=== PATIENT | female | born 1965 | race Caucasian/White ===

== ENCOUNTER 2018-03-10 17:22 | Inpatient (IN) | payer BC ==
[2018-03-10] MEDS ORDERED: Ibuprofen TAB* 600 MG PO ONE (17:26)
--- NOTE | 2018-03-10 17:55 | ED ---
Lower Extremity - HPI Summary HPI Summary: Pt is a 52 y/o female brought in by EMS who presents to the ED c/o ankle pain s/ p fall. She was walking down stairs when she twisted both of her ankles outward , and fell down the stairs. Pt was not able to get off the ground. She notes swelling, pain, and deformity of both ankles, but states the left ankle is worse. Pt denies any head or arm injury. She is not a smoker and is not on blood thinners. - History of Current Complaint Stated Complaint: FALL/LT AND RT ANKLE INJURY Time Seen by Provider: 03/10/18 17:25 Hx Obtained From: Patient, EMS Mechanism Of Injury: Fall From Height Of: - While on stairs, Twisted Onset of Pain: Immediate Severity Currently: Moderate Pain Intensity: 6 Pain Scale Used: 0-10 Numeric Timing: Constant Location: Is Discrete @ - Bilateral ankles Associated Signs And Symptoms: Positive: Swelling, Other - ankle pain Aggravating Factor(s): Movement Able to Bear Weight: No - Allergies/Home Medications Allergies/Adverse Reactions: Allergies Allergy/AdvReac Type Severity Reaction Status Date / Time latex Allergy Unknown Verified 03/10/18 17:33 Reaction Details Penicillins Allergy Unknown Verified 03/10/18 17:33 Reaction Details PMH/Surg Hx/FS Hx/Imm Hx Endocrine/Hematology History: Reports: Hx Thyroid Disease Denies: Hx Diabetes Cardiovascular History: Denies: Hx Hypertension - Surgical History Surgery Procedure, Year, and Place: Right hip replacement Infectious Disease History: No Infectious Disease History: Denies: Traveled Outside the [place] in Last 30 Days - Family History Known Family History: Negative: Blood Disorder - Social History Alcohol Use: Occasionally Hx Substance Use: No Substance Use Type: Reports: None Hx Tobacco Use: No Smoking Status (MU): Never Smoked Tobacco Review of Systems Negative: Fever Positive: Arthralgia - Bilateral ankle pain All Other Systems Reviewed And Are Negative: Yes Physical Exam - Summary Physical Exam Summary: Appearance: Well appearing, no pain distress Skin: warm, dry, reflects adequate perfusion Head/face: normal Eyes: EOMI, TONY ENT: mucous membranes moist Neck: supple, non-tender Respiratory: CTA, breath sounds present Cardiovascular: RRR, pulses symmetrical Abdomen: non-tender, soft Bowel Sounds: present Musculoskeletal: tenderness and swelling of bilateral distal fibula, bilateral lateral malleolar tenderness and swelling, no pain to the fifth metatarsals, naviculars, or medial malleoli Neuro: normal, sensory motor intact, A&Ox3 Triage Information Reviewed: Yes Vital Signs On Initial Exam: Initial Vitals Temp Pulse Resp BP Pulse Ox 98.6 F 73 16 135/89 95 03/10/18 17:30 03/10/18 17:30 03/10/18 17:30 03/10/18 17:30 03/10/18 17:30 Vital Signs Reviewed: Yes Procedures - Splinting Left Lower Extremity Location: LLE Hand-Made Type: orthoglass Splint: sugar-tong Pre-Proc Neuro Vasc Exam: normal Post-Proc Neuro Vasc Exam: normal Right Lower Extremity Location: RLE Pre-Made Type: aircast Pre-Proc Neuro Vasc Exam: normal Post-Proc Neuro Vasc Exam: normal Diagnostics - Vital Signs Vital Signs Temp Pulse Resp BP Pulse Ox 03/10/18 17:30 98.6 F 73 16 135/89 95 - Laboratory Lab Statement: Any lab studies that have been ordered have been reviewed, and results considered in the medical decision making process. - Radiology Ankle XR Xray Interpretation: Positive (See Comments) - OBLIQUE NONDISPLACED FRACTURE OF THE DISTAL LEFT FIBULA WITH QUESTIONABLE NONDISPLACED FRACTURE OF THE DISTAL RIGHT FIBULA. ED physicial reviewed radiology report. Radiology Interpretation Completed By: Radiologist Re-Evaluation - Re-Evaluation First Eval Re-Evaluation Time: 19:45 Change: Unchanged Comment: Spoke to social sciences lecturer, pt has to be admitted since she cannot walk. Lower Extremity Course/Dx - Course Course Of Treatment: Patient with a Hanna B fracture of her right distal fibula that was splinted in a sugar tong. There is a nondisplaced Hanna refracture on the right side. This is placed in an Sly wrap and air splint. The patient however was unable to bear weight and is from out of town. She has no place to stay or anyone to take care of her. Social work was contacted and they wished to have the patient admitted overnight. She'll see orthopedics in the morning. - Diagnoses Provider Diagnoses: Fracture of distal end of right fibula, Fracture of distal end of left fibula - Physician Notifications Discussed Care Of Patient With: Latrell Burgess Time Discussed With Above Provider: 19:55 Instructed by Provider To: Admit As Inpatient - MADDY Lindsay accepts pt for admission. Discharge - Sign-Out/Discharge Documenting (check all that apply): Patient Departure - Admit - Discharge Plan Condition: Stable Disposition: ADMITTED TO [facility] Prescriptions: Hydrocodone/Acetaminophen [[place] 5-325 Tablet] 1 each PO Q6H PRN #12 tablet MDD 4 PRN Reason: Severe Pain Naproxen [Naproxen 500 mg tab] 500 mg PO BID PRN #12 tablet.dr MANCILLA Reason: Pain Patient Education Materials: Ankle Fracture (ED) Referrals: Jonathan Coe MD [Medical Doctor] - No Primary Care Phys,NOPCP [Primary Care Provider] - Additional Instructions: Follow up with your doctor on arrival back to [place]. See an orthopedist as soon as possible. Weightbearing as tolerated on the right ankle. Crutch walking. Ice or legs. Return if worse, new symptoms or other concerns. - Billing Disposition and Condition Condition: STABLE Disposition: Admitted to [facility] - Attestation Statements Document Initiated by Scribe: Yes Documenting Scribe: Janeth Garcia Provider For Whom Scribe is Documenting (Include Credential): Brian Garrido MD Scribe Attestation: Janeth Lieberman, scribed for Brian Garrido MD on 03/10/18 at 2112. Scribe Documentation Reviewed: Yes Provider Attestation: The documentation as recorded by the scribeJaneth accurately reflects the service I personally performed and the decisions made by me, Brian Garrido MD
--- NOTE | 2018-03-10 18:04 | RAD ---
HISTORY: injury COMPARISONS: None VIEWS: 5 , frontal views of both ankles with oblique views and lateral views of the left ankle and of the right ankle FINDINGS: Right: BONE DENSITY: Normal. BONES: There is a questionable oblique nondisplaced fracture of the distal fibula JOINTS: There is no arthropathy. ALIGNMENT: There is no dislocation. The alignment is anatomic. SOFT TISSUES: Unremarkable. Left: BONE DENSITY: Normal. BONES: There is an oblique nondisplaced fracture of the distal fibula. JOINTS: There is no arthropathy. ALIGNMENT: There is no dislocation. The alignment is anatomic. SOFT TISSUES: Unremarkable. OTHER FINDINGS: None. IMPRESSION: OBLIQUE NONDISPLACED FRACTURE OF THE DISTAL LEFT FIBULA WITH QUESTIONABLE NONDISPLACED FRACTURE OF THE DISTAL RIGHT FIBULA.
[2018-03-10] MEDS: oxyCODONE/Acetamin 5/325 MG* TAB PO ONE ×2 (19:21→19:23)
[2018-03-10] MEDS ORDERED: Docusate CAP* 100 MG PO PRN (20:37)
[2018-03-10] MEDS ORDERED: traMADol TAB* 50 MG PO PRN (20:41)
[2018-03-10 21:16] LABS: ABS Basophils 0 10^3/ul (0-0.2); ABS Eosinophils 0.1 10^3/ul (0-0.6); ABS Lymphocytes 1.8 10^3/ul (1.0-4.8); ABS Monocytes 0.5 10^3/ul (0-0.8); ABS Neutrophils 5.3 10^3/ul (1.5-7.7); ABS Nucleated RBC 0 10^3/ul; Hematocrit 43 % (35-47); Hemoglobin 14.4 g/dl (12.0-16.0); Lymphocyte % 23.2 % (25-47); Mean Corpuscular HGB Conc 33 g/dl (31-36); Mean Corpuscular Hemoglobin 31 pg (27-31); Mean Corpuscular Volume 92 fL (80-97); Mean Platelet Volume 8.6 um3 (7.4-10.4); Nucleated Red Blood Cells % 0; Platelet Count 259 10^3/ul (150-450); Red Cell Distribution Width 13 % (10.5-15); White Blood Count 7.6 10^3/ul (3.5-10.8)
[2018-03-10 21:32] LABS: EGFR Non-African American 80.8 (>60)
[2018-03-10 21:38] LABS: INR 0.92 (0.77-1.02)
[2018-03-11] MEDS: Ketorolac INJ* 30 MG/ML 1 ML VIAL IV PUSH PRN ×2 (01:55→20:01)
[2018-03-11] MEDS: Enoxaparin(*) 40 MG/0.4 ML SYR SUBCUT SCH ×2 (01:57→20:02)
--- NOTE | 2018-03-11 03:44 | HP ---
ADMISSION HISTORY AND PHYSICAL: DATE OF ADMISSION: 03/10/18 CHIEF COMPLAINT: Bilateral ankle pain status post fall sustaining nondisplaced fracture of the left fibula with question of nondisplaced fracture of the right. HISTORY OF PRESENT ILLNESS/HOSPITAL COURSE: The patient is a 52-year-old lady with history of hyperthyroidism, currently not on methimazole, being worked up at [facility], who mentions that she was going down a flight of stairs and about 2 or 3 steps left tripped where her foot anchored on one of the stairs and she broke her fall with her hands. She denied any other pain except for the foot and is able to move her arms as well as her wrists. PAST MEDICAL AND SURGICAL HISTORY: Right hip replacement; right shoulder rotator cuff repair; hyperthyroidism, previously on methimazole being evaluated at [facility]. ALLERGIES: PENICILLIN, which causes rash and allergies to LATEX. FAMILY HISTORY: Her grandmother has history of coronary artery disease. Her mother had diabetes. SOCIAL HISTORY: She denied any smoking history except when she was a teenager, which she did for social reason. Denied any history of alcohol and IV drug use. 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 REVIEW OF SYSTEMS: The patient complains of bilateral ankle pain 11/26. Denies any other pain anywhere else, able to move all extremities including her right shoulder which she mentions that she had some rotator cuff repair a few months back. Denied any pain in her hands and her wrists. She denied any recent headache, dizziness, fevers, chills, nausea, vomiting, chest pain, shortness of breath, increased cough or sputum production, abdominal pain, diarrhea, constipation, pain and/or increased frequency in urination, throat pain, or new skin lesions. The rest of the 14-point review of systems is otherwise unremarkable. PHYSICAL EXAMINATION GENERAL APPEARANCE: The patient is awake, alert, and oriented x3, not in acute distress. VITAL SIGNS: Most recent vital signs of record with blood pressure of 135/86, 70 beats per minute heart rate, 16 per minute respiratory rate, saturating at 95 % room air. HEENT: Normocephalic, atraumatic. PERRLA. Extraocular muscles intact. Negative for icterus. Moist oral mucosa, negative throat erythema. NECK: Soft, supple with no cervical lymphadenopathy. No JVD. CHEST: Clear to auscultation bilaterally. Good air entry. No wheezes, rales, or rhonchi. HEART: S1, S2 within normal limits. Regular rate and rhythm. No murmurs, rubs , or gallops ABDOMEN: Soft, nondistended, nontender, normoactive bowel sounds x4 quadrants. EXTREMITIES: No cyanosis, clubbing, or edema. PSYCHIATRIC: No active psychosis, depression, suicidal or homicidal ideation. SKIN: Warm to touch. DIAGNOSTIC STUDIES/LAB DATA: Most recent and impertinent laboratory data is the x- ray of her bilateral ankles showing oblique nondisplaced fracture of the distal left fibula with questionable nondisplaced fracture of the distal right fibula. No blood work done, but we will order CBC, CMP, as well as PT/INR pending on decision of Orthopedics in a.m. ASSESSMENT AND PLAN: The patient is a 52-year-old lady with history of hyperthyroidism, not on methimazole, being worked up at [facility], admitted for this nondisplaced fracture of the distal left fibula with a question of nondisplaced fracture in the distal right. 1. Left fibular fracture with questionable nondisplaced fracture of the distal right fibula. The patient mentions that she does not want to be placed on any hard opiates and hence we will place the patient on Tylenol and p.r.n. Ketorolac and tramadol and we will continue watchful waiting. We will await any further input from Orthopedics and we will ask for PT and OT to evaluate in a.m. 2. DVT prophylaxis. We will place the patient on Lovenox given the patient is unable to ambulate due to pain. 3. Disposition as above. [id number]/[facility] #: [id number] [facility] CENTERHeriberto
[2018-03-11] MEDS: Omeprazole CAP* 20 MG PO SCH (07:36)
--- NOTE | 2018-03-11 11:32 | PN ---
Subjective Date of Service: 03/11/18 Interval History: Patient seen this morning. She is doing well. complains of some pain. Eager to have her plan finalized. I explained we are awaiting the recommendation from orthopedic. If patient is non surgical than will possibly discharge her today. Will follow up with ortho plan Past Medical History: Unchanged from Admission Objective Active Medications: Acetaminophen (Tylenol Tab*) 650 mg PO Q4H PRN PRN Reason: FEVER/PAIN Docusate Sodium (Colace Cap*) 100 mg PO DAILY PRN PRN Reason: CONSTIPATION Enoxaparin Sodium (Lovenox(*)) 40 mg SUBCUT Q24H [facility] Last Admin: 03/11/18 01:57 Dose: 40 mg Ketorolac Tromethamine (Toradol Inj*) 30 mg IV PUSH Q6H PRN PRN Reason: PAIN Last Admin: 03/11/18 01:55 Dose: 30 mg Omeprazole (Prilosec Cap*) 20 mg PO DAILY@0730 [facility] Last Admin: 03/11/18 07:36 Dose: 20 mg Tramadol HCl (Ultram*) 100 mg PO Q6H PRN PRN Reason: PAIN Vital Signs - 8 hr 03/11/18 03:39 Temperature 97.9 F Pulse Rate 57 Respiratory 18 Rate Blood Pressure 107/70 (mmHg) O2 Sat by Pulse 96 Oximetry Oxygen Devices in Use Now: None Appearance: awake, no acute distress Eyes: No Scleral Icterus Neck: NL Appearance and Movements; NL JVP Respiratory: Symmetrical Chest Expansion and Respiratory Effort, Clear to Auscultation Cardiovascular: NL Sounds; No Murmurs; No JVD, RRR Extremities: - - in bed. soft cast in place to right left leg. Sly wrap to her left ankle Skin: No Rash or Ulcers Result Diagrams: 03/10/18 21:09 03/10/18 21:09 Assess/Plan/Problems-Billing Assessment: 52 y/o female here for bilateral ankle fracture. oblique non displaced left ankle fracture, and questionable displaced fracture of the right fibula - Patient Problems (1) Ankle fracture Current Visit: Yes Status: Acute Code(s): S82.899A - OTH FRACTURE OF UNSP LOWER LEG, INIT FOR CLOS FX SNOMED Code(s): 11159599 Comment: - follow up ortho input - bed rest, non weight bearing. - Tramdol, tylenol and toradol (2) Hyperthyroidism Current Visit: Yes Status: Acute Code(s): E05.90 - THYROTOXICOSIS, UNSP WITHOUT THYROTOXIC CRISIS OR STORM SNOMED Code(s): 63151506 Comment: - non listed on her home med list. Patient states she is having follow up with her asphalt roller person once she returns home. (3) DVT prophylaxis Current Visit: Yes Status: Acute Code(s): KNM5927 - SNOMED Code(s): 285758358 Comment: lovenox 40 mg sq daily
[2018-03-11] MEDS: Acetaminophen TAB* 325 MG PO PRN (21:41)
--- NOTE | 2018-03-12 06:33 | CONS ---
ORTHOPEDIC CONSULTATION: DATE OF CONSULT: 03/11/18 ATTENDING PHYSICIAN: Dr. Main. ATTENDING ORTHOPEDIC: Dr. Jonathan Coe. (DICTATED BY MADDY SORIA) CHIEF ORTHOPEDIC COMPLAINT: Bilateral ankle pain, left worse than right. HISTORY OF PRESENT ILLNESS: The patient is a 52-year-old female who was visiting her son at [facility] when she missed step walking down a flight of stairs and fell twisting both of her ankles. The patient states difficult ambulating due to pain and swelling in bilateral lower extremities. X -rays were obtained and reveal a fracture of the left distal fibula. No obvious fractures are identified in the right ankle. She was placed into a sugar tong well-formed splint on the left and was given an Aircast for her right lower extremity. She states she is having difficulty ambulating due to right ankle pain as well. She denies other bodily injury upon her fall. She recently underwent right rotator cuff repair in [place]. Surgery was done about 2 months ago and she continues to rehab from that. PAST MEDICAL HISTORY: Significant for right total hip arthroplasty as above, right shoulder rotator cuff repair, hyperthyroidism. ALLERGIES: To PENICILLIN, which causes a rash, as well as allergy to LATEX. FAMILY HISTORY: Coronary artery disease in her grandmother. Mother with a history of diabetes. SOCIAL HISTORY: Denies use of alcohol, tobacco, or illicit drug use. 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 REVIEW OF SYSTEMS: The patient denies recent loss of consciousness, lightheadedness, dizziness. Denies shortness of breath, chest pain, palpitations. Denies gastrointestinal, genitourinary problems. PHYSICAL EXAMINATION: The patient is seen lying supine in bed. She is alert and oriented x3. She is in no acute distress. Orthopedic examination reveals a sugar tong splinted left lower extremity with Sly wrap. There is no ecchymosis noted distally or proximal to the splint. Her calf is nontender and soft. She is moving her toes well and has full sensation with excellent capillary refill. On the right, she had an Aircast splint, which was taken down , Sly wrap removed. There is moderate swelling laterally. There is mild ecchymosis laterally around the ankle. There is no foot ecchymosis or swelling. There is no tenderness to the metatarsals. There is no tenderness over the medial malleolus. Mild deltoid ligament tenderness. There is acute tenderness over the anterior talofibular ligament, none over the posterior talofibular ligament or calcaneal fibular ligaments. She has full dorsiflexion and plantarflexion with mild endpoint pain. Her circulation and sensation are intact with excellent capillary refill. Her calf is soft and nontender on the right. DIAGNOSTIC STUDIES: X-ray examination of the right ankle fails to show any obvious fracture. Her ankle mortise in acceptable position. X-ray of the left ankle reveals nondisplaced comminution oblique fractures in the distal fibular. The ankle mortise is in satisfactory position. IMPRESSION: 1. Right lateral ankle sprain. 2. Left distal fibular fracture nondisplaced. PLAN: The patient is eager to get back to [facility] where she will follow up with an orthopedic provider there. I recommend weightbearing as tolerated on the right lower extremity with the Aircast splint. Nonweightbearing on the left lower extremity until seen Orthopedics in [facility]. No surgical intervention appears necessary at this time for the left ankle. I recommend physical therapy to work with her for ambulation and transfers. MADDY SORIA [id number]/[facility] #: [id number] MTDD
[2018-03-12] MEDS: Omeprazole CAP* 20 MG PO SCH (10:40)
--- NOTE | 2018-03-12 11:00 | PN ---
Subjective Date of Service: 03/12/18 Interval History: Patient seen out of bed in chair. she did work with physical therapy yesterday as per ortho recommendation for weight bearing (only on the right) non weight bearing on the left. Past Medical History: Unchanged from Admission Objective Active Medications: Acetaminophen (Tylenol Tab*) 650 mg PO Q4H PRN PRN Reason: FEVER/PAIN Last Admin: 03/11/18 21:41 Dose: 650 mg Docusate Sodium (Colace Cap*) 100 mg PO DAILY PRN PRN Reason: CONSTIPATION Enoxaparin Sodium (Lovenox(*)) 40 mg SUBCUT Q24H [facility] Last Admin: 03/11/18 20:02 Dose: 40 mg Ketorolac Tromethamine (Toradol Inj*) 30 mg IV PUSH Q6H PRN PRN Reason: PAIN Last Admin: 03/11/18 20:01 Dose: 30 mg Omeprazole (Prilosec Cap*) 20 mg PO DAILY@0730 [facility] Last Admin: 03/12/18 10:40 Dose: 20 mg Tramadol HCl (Ultram*) 100 mg PO Q6H PRN PRN Reason: PAIN Vital Signs - 8 hr 03/12/18 03:55 Temperature 97.5 F Pulse Rate 59 Respiratory 16 Rate Blood Pressure 133/64 (mmHg) O2 Sat by Pulse 98 Oximetry Oxygen Devices in Use Now: None Appearance: no acute distress, awake, alert no acute distress Eyes: No Scleral Icterus, PERRLA Ears/Nose/Mouth/Throat: NL Teeth, Lips, Gums, Clear Oropharnyx Neck: NL Appearance and Movements; NL JVP, Trachea Midline Respiratory: Symmetrical Chest Expansion and Respiratory Effort, Clear to Auscultation Cardiovascular: NL Sounds; No Murmurs; No JVD, RRR Abdominal: NL Sounds; No Tenderness; No Distention Extremities: - - soft air cast on her right ankle, and she does have sadia wrap to her left ankle Skin: No Rash or Ulcers Neurological: Alert and Oriented x 3 Result Diagrams: 03/10/18 21:09 03/10/18 21:09 Assess/Plan/Problems-Billing Assessment: 52 y/o female here for bilateral ankle fracture. oblique non displaced left ankle fracture, and no obvious fracture of the right fibula as per orthopedic assessment of the xrays - Patient Problems (1) Ankle fracture Current Visit: Yes Status: Acute Code(s): S82.899A - OTH FRACTURE OF UNSP LOWER LEG, INIT FOR CLOS FX SNOMED Code(s): 28227317 Comment: - ortho cleared patient for weight bearing only to the right ankle. - PT/OT as tolerated. - Tramdol, tylenol and toradol - need ortho follow up within one week pending disposition. (2) Hyperthyroidism Current Visit: Yes Status: Acute Code(s): E05.90 - THYROTOXICOSIS, UNSP WITHOUT THYROTOXIC CRISIS OR STORM SNOMED Code(s): 71477764 Comment: - non listed on her home med list. Patient states she is having follow up with her nanny caregiver once she returns home. - Declined treatment at this time until she sees her nanny caregiver (3) DVT prophylaxis Current Visit: Yes Status: Acute Code(s): FPG9744 - SNOMED Code(s): 709134503 Comment: lovenox 40 mg sq daily Status and Disposition: for STR [facility] or [facility] home [facility] as patient prefer [facility] rehab if possible
[2018-03-12] MEDS: Ketorolac INJ* 30 MG/ML 1 ML VIAL IV PUSH PRN (20:48)
[2018-03-12] MEDS: Enoxaparin(*) 40 MG/0.4 ML SYR SUBCUT SCH (20:48)
[2018-03-13] MEDS: Omeprazole CAP* 20 MG PO SCH (08:36)
--- NOTE | 2018-03-13 11:27 | PN ---
Subjective Date of Service: 03/13/18 Interval History: Patient seen today, was getting PT. No events overnight. She still have pain in both legs. NO events overnight. awaiting acceptance to short term rehab Past Medical History: Unchanged from Admission Objective Active Medications: Acetaminophen (Tylenol Tab*) 650 mg PO Q4H PRN PRN Reason: FEVER/PAIN Last Admin: 03/11/18 21:41 Dose: 650 mg Docusate Sodium (Colace Cap*) 100 mg PO DAILY PRN PRN Reason: CONSTIPATION Enoxaparin Sodium (Lovenox(*)) 40 mg SUBCUT Q24H [facility] Last Admin: 03/12/18 20:48 Dose: 40 mg Ketorolac Tromethamine (Toradol Inj*) 30 mg IV PUSH Q6H PRN PRN Reason: PAIN Last Admin: 03/12/18 20:48 Dose: 30 mg Omeprazole (Prilosec Cap*) 20 mg PO DAILY@0730 [facility] Last Admin: 03/13/18 08:36 Dose: 20 mg Tramadol HCl (Ultram*) 100 mg PO Q6H PRN PRN Reason: PAIN Vital Signs - 8 hr 03/13/18 03:49 Temperature 97.5 F Pulse Rate 58 Respiratory 18 Rate Blood Pressure 108/58 (mmHg) O2 Sat by Pulse 100 Oximetry Oxygen Devices in Use Now: None Appearance: appearance, awake. in no acute distress Eyes: No Scleral Icterus, PERRLA Ears/Nose/Mouth/Throat: NL Teeth, Lips, Gums, Clear Oropharnyx Neck: NL Appearance and Movements; NL JVP Respiratory: Symmetrical Chest Expansion and Respiratory Effort, Clear to Auscultation Cardiovascular: NL Sounds; No Murmurs; No JVD, RRR Abdominal: NL Sounds; No Tenderness; No Distention Neurological: Alert and Oriented x 3 Result Diagrams: 03/10/18 21:09 03/10/18 21:09 Assess/Plan/Problems-Billing Assessment: 52 y/o female here for bilateral ankle fracture. Oblique non displaced left ankle fracture, and no obvious fracture of the right fibula as per orthopedic assessment of the xrays - Patient Problems (1) Ankle fracture Current Visit: Yes Status: Acute Code(s): S82.899A - OTH FRACTURE OF UNSP LOWER LEG, INIT FOR CLOS FX SNOMED Code(s): 05215851 Comment: - ortho cleared patient for weight bearing only to the right ankle. - PT/OT as tolerated. - Tramdol, tylenol and toradol - need ortho follow up within one week pending disposition. (2) Hyperthyroidism Current Visit: Yes Status: Acute Code(s): E05.90 - THYROTOXICOSIS, UNSP WITHOUT THYROTOXIC CRISIS OR STORM SNOMED Code(s): 81783735 Comment: - non listed on her home med list. Patient states she is having follow up with her rail layer once she returns home. - Declined treatment at this time until she sees her rail layer - TSH/FT4 from admission normal - Further work up as outpatient. (she sees endocrinology at [facility]) (3) DVT prophylaxis Current Visit: Yes Status: Acute Code(s): FLZ8388 - SNOMED Code(s): 276695174 Comment: lovenox 40 mg sq daily Status and Disposition: for STR either here [facility] or back home [facility] as patient prefer [facility] rehab if possible
--- NOTE | 2018-03-13 18:00 | RAD ---
INDICATION: Chest pain. COMPARISON: There are no relevant prior studies available for comparison. TECHNIQUE: A portable view of the chest was obtained. FINDINGS: Cardiac and mediastinal contours appear to be within normal limits. The lungs are clear. No pleural effusion is seen. IMPRESSION: NO EVIDENCE FOR ACUTE DISEASE.
[2018-03-13] MEDS: Enoxaparin(*) 40 MG/0.4 ML SYR SUBCUT SCH (21:02)
[2018-03-14] MEDS: Omeprazole CAP* 20 MG PO SCH (08:30)
--- NOTE | 2018-03-14 11:37 | PN ---
Subjective Date of Service: 03/14/18 Interval History: Patient seen today, still upset regarding the difficulty we have been facing getting her insurance approval for STR. We finally heard today that will be approved for STR here at [facility]. Patient is appreciative of working toward her authorization, but she did prefer rehab to [facility]! unfortunately we did not get any approval for [facility] but myself and the casework supervisor did inform her that she can request from [facility] if they can assist her getting rehab place in [place]. Last night she did have chest pain which was negative Trop, Negative CXR and Negative EKG. No chest pain she is complaining of dyspepsia today and dizziness. Her vitals stable and her pulse normal . Also I was in the room with her for about 30 minutes without any obvious distress. Past Medical History: Unchanged from Admission Objective Active Medications: Acetaminophen (Tylenol Tab*) 650 mg PO Q4H PRN PRN Reason: FEVER/PAIN Last Admin: 03/11/18 21:41 Dose: 650 mg Docusate Sodium (Colace Cap*) 100 mg PO DAILY PRN PRN Reason: CONSTIPATION Enoxaparin Sodium (Lovenox(*)) 40 mg SUBCUT Q24H [facility] Last Admin: 03/13/18 21:02 Dose: 40 mg Ketorolac Tromethamine (Toradol Inj*) 30 mg IV PUSH Q6H PRN PRN Reason: PAIN Last Admin: 03/12/18 20:48 Dose: 30 mg Omeprazole (Prilosec Cap*) 20 mg PO DAILY@0730 [facility] Last Admin: 03/14/18 08:30 Dose: 20 mg Tramadol HCl (Ultram*) 100 mg PO Q6H PRN PRN Reason: PAIN Last Admin: 03/13/18 23:30 Dose: 100 mg T 97.4; Pulse 56; RR 16; Sat 96%; BP 106/54 Oxygen Devices in Use Now: None Appearance: No acute distress. anxious. not diaphoretic. no altered mental status Eyes: No Scleral Icterus, PERRLA Ears/Nose/Mouth/Throat: NL Teeth, Lips, Gums, Clear Oropharnyx Neck: NL Appearance and Movements; NL JVP, Trachea Midline Respiratory: Symmetrical Chest Expansion and Respiratory Effort, Clear to Auscultation Cardiovascular: NL Sounds; No Murmurs; No JVD, RRR, No Edema Abdominal: NL Sounds; No Tenderness; No Distention Extremities: No Edema Skin: No Rash or Ulcers Neurological: Alert and Oriented x 3 Result Diagrams: 03/10/18 21:09 03/10/18 21:09 Assess/Plan/Problems-Billing Assessment: 52 y/o female here for bilateral ankle fracture. Oblique non displaced left ankle fracture, and no obvious fracture of the right fibula as per orthopedic assessment of the xrays - Patient Problems (1) Ankle fracture Current Visit: Yes Status: Acute Code(s): S82.899A - OTH FRACTURE OF UNSP LOWER LEG, INIT FOR CLOS FX SNOMED Code(s): 89054756 Comment: - ortho cleared patient for weight bearing only to the right ankle. - PT/OT as tolerated. - Tramdol, tylenol and toradol - need ortho follow up within one 7-10 from admission date (2) Hyperthyroidism Current Visit: Yes Status: Acute Code(s): E05.90 - THYROTOXICOSIS, UNSP WITHOUT THYROTOXIC CRISIS OR STORM SNOMED Code(s): 69298991 Comment: - non listed on her home med list. Patient states she is having follow up with her statement distribution clerk once she returns home. - Declined treatment at this time until she sees her statement distribution clerk - TSH/FT4 from admission normal - Further work up as outpatient. (she sees endocrinology at [facility]) (3) Chest pain Current Visit: Yes Status: Resolved Code(s): R07.9 - CHEST PAIN, UNSPECIFIED SNOMED Code(s): 15946352 Comment: - Vitals stable, she was assymptomatic driven by frustration and distress regarding her insurance and prior authorizations, I think anxiety driven, psychosomatic - reassurance no acute interventions. EKG, CXR Trop negative (4) Dizziness Current Visit: Yes Status: Resolved Code(s): R42 - DIZZINESS AND GIDDINESS SNOMED Code(s): 965598226 Comment: - Vitals stable, she was assymptomatic driven by frustration and distress regarding her insurance and prior authorizations, I think anxiety driven, psychosomatic - reassurance no acute interventions. EKG, CXR Trop negative (5) DVT prophylaxis Current Visit: Yes Status: Acute Code(s): KWF0802 - SNOMED Code(s): 142977779 Comment: lovenox 40 mg sq daily Status and Disposition: for STR either here in [facility] or back home [facility] as patient prefer [facility] rehab if possible
--- NOTE | 2018-03-14 13:22 | DS ---
CC: Primary Care Provider; Dr. Jonathan Coe, Orthopedic. DISCHARGE SUMMARY: DATE OF ADMISSION: 03/10/18 DATE OF DISCHARGE: 03/14/18 FINAL DISCHARGE DIAGNOSES: 1. Left nondisplaced distal fibular fracture. 2. Right lateral ankle sprain. 3. Hyperthyroidism. SUBJECTIVE: This is a 52-year-old female was visiting her son at [place] and she had an accidental m isstep walking down a flight of stairs, twisted both of her ankles and developed sudden pain and swel ling in bilateral lower leg. The x-ray revealed distal fibular fracture on the left and initially qu estionable nondisplaced fracture of the right. Orthopedics saw, evaluated the patient. They did con firm the fracture on the left and only sprain on the right. They cleared her for weightbearing on e right only, PT/OT, and given her prior history of rotator cuff on the right, she is deemed appropri ate for short-term rehab. Patient remained in the hospital while getting prior authorization for her rehab as she is from [place], unfortunately was not able to secure prior auth to [place], no bed a vailability. She was given a bed at [facility] finally today, 03/14/18. Information was shared wit h the patient. She was slightly disappointed, but finally agreed for the transfer and developed some chest pain after realizing the insurance was denied as of yesterday and last night developed chest p ain. Chest x- ray, EKG, troponin were reported done were negative. This morning, she was complainin g of some dizziness. Her vitals were fairly stable, nondiaphoretic. I was in the room with her for 3 0 minutes. She was conversing and completely asymptomatic. Finally, we got the approval for [facility]. She was slightly more relieved that she is not going to be responsible any longer for being i n the hospital or waiting for the rehab and we are in the midst of arranging transfer to [facility] . She was appreciated for the effort and she understood and she wished to further proceed with [facility] that she needs to consult with the life care planner at [facility]. T herefore, patient seen, evaluated and deemed stable for discharge. DISCHARGE MEDICATIONS: Patient would be released on: 1. Naproxen 500 mg p.r.n. take with food. 2. Tylenol 650 q.4 hours p.r.n. 3. Colace 100 mg daily. 4. Omeprazole 20 mg. 5. I discontinue her narcotics, tramadol and hydrocodone for now, unless if deemed necessary, it can be renewed by the facility provider. DISCHARGE INSTRUCTIONS: 1. Follow up with Orthopedics in 7 to 10 days from admission, which would be 4 to 7 days from today with Dr. Coe here, unless she is in [place], she has to set up an appointment with orthopedic fo r followup. 2. She is nonweightbearing to the left, weightbearing as tolerated to the right ankle. 3. PT/OT evaluated and treated. 4. Adhere to medication and with a regular diet. PHYSICAL EXAM AND ASSESSMENT: Please refer to my progress notes from earlier than today. [id number]/[facility] #: [id number]
[2018-03-14 16:08] LABS: ABS Basophils 0 10^3/ul (0-0.2); ABS Eosinophils 0.1 10^3/ul (0-0.6); ABS Monocytes 0.4 10^3/ul (0-0.8); ABS Nucleated RBC 0 10^3/ul; Eosinophil % 0.8 % (0-6); Hematocrit 41 % (35-47); Hemoglobin 13.7 g/dl (12.0-16.0); Lymphocyte % 13.6 % (25-47); Mean Corpuscular HGB Conc 34 g/dl (31-36); Mean Corpuscular Hemoglobin 30 pg (27-31); Mean Corpuscular Volume 90 fL (80-97); Nucleated Red Blood Cells % 0.1; Platelet Count 210 10^3/ul (150-450); Red Blood Count 4.52 10^6/ul (4.00-5.40); Red Cell Distribution Width 13 % (10.5-15); White Blood Count 7.5 10^3/ul (3.5-10.8)
[2018-03-14 16:23] LABS: EGFR Non-African American 76.1 (>60)
--- NOTE | 2018-03-14 16:59 | PN ---
Hospitalist Progress Note Date of Service: 03/14/18 I was called around 2:20'sh to assess patient developed acute nausea and abdominal pain after her lunch and this was followed by episode of vomiting. Patient was seen in the room. She did not have any abdominal tenderness or guarding, however on further history she gives history of "pancreatitis related to gall bladder issue and stones" for which I presumed she may have had gallstone induced pancreatitis. I did order stat labs for CBC, BMP; Amylase, Lipase, LFT stat and the labs came back slight increase in her bilirubin to 1.5 with indicrect bili of 1.3! I went back and reassessed the patient after the labs and she denies any discomfort but she does not feel like eating from nausea. At this time and with the presentation of post pandrial vomit, associated with previous history of choledocholelithiasis, I will keep patient overnight, check her labs again in am try low fat diet and US of RUQ to rule out CBD stone. pending result and clinical progression will decide if she can be discharged tomorrow of is he warrant further evaluation and possible surgical input.
--- NOTE | 2018-03-14 22:01 | RAD ---
EXAM: US Abdomen Limited, Right Upper Quadrant EXAM DATE/TIME: 03/14/2018 9:29 PM CLINICAL HISTORY: 52 years old, female; Pain; Abdominal pain; Localized; Right upper quadrant (ruq); Additional info: Abdominal pain and vomit TECHNIQUE: Real-time ultrasound of the abdomen with image documentation. Examination was focused on the right upper quadrant. COMPARISON: No relevant prior studies available. FINDINGS: Liver: Liver normal as visualized measuring 19.5 cm in greatest dimension. Gallbladder: Cholelithiasis is present. Gallbladder wall thickness measures 1.8 mm. Technologist reports no patient complaints of pain when imaged over the gallbladder. Common bile duct: Common bile duct measures 2.0 mm. Pancreas: Pancreas normal as visualized. Right kidney: Right kidney measures 10.8 x 4.6 x 3.8 cm. No mass or hydronephrosis. IMPRESSION: Cholelithiasis without other sonographic findings of cholecystitis. To contact [facility] with a general question: [facility] - [phone] For direct physician to physician contact: Physician Hotline - [phone] [facility] ([facility] Facility ID #[id number])
[2018-03-14] MEDS: Naproxen TAB* 375 MG PO SCH (22:10)
[2018-03-14] MEDS: Enoxaparin(*) 40 MG/0.4 ML SYR SUBCUT SCH (22:10)
[2018-03-14] MEDS ORDERED: Ondansetron INJ* 2 MG/ML VIAL IV PRN (22:57)
[2018-03-15] MEDS: Omeprazole CAP* 20 MG PO SCH (07:34)
[2018-03-15 07:50] LABS: ABS Basophils 0 10^3/ul (0-0.2); ABS Eosinophils 0.1 10^3/ul (0-0.6); ABS Lymphocytes 1.8 10^3/ul (1.0-4.8); ABS Monocytes 0.4 10^3/ul (0-0.8); ABS Neutrophils 3.2 10^3/ul (1.5-7.7); ABS Nucleated RBC 0 10^3/ul; Hematocrit 42 % (35-47); Hemoglobin 14.4 g/dl (12.0-16.0); Lymphocyte % 32.3 % (25-47); Mean Corpuscular HGB Conc 34 g/dl (31-36); Mean Corpuscular Hemoglobin 31 pg (27-31); Mean Corpuscular Volume 90 fL (80-97); Mean Platelet Volume 9.2 um3 (7.4-10.4); Nucleated Red Blood Cells % 0; Platelet Count 220 10^3/ul (150-450); Red Blood Count 4.64 10^6/ul (4.00-5.40); Red Cell Distribution Width 13 % (10.5-15); White Blood Count 5.5 10^3/ul (3.5-10.8)
[2018-03-15 07:51] LABS: EGFR Non-African American 77.3 (>60)
[2018-03-15] MEDS: Naproxen TAB* 375 MG PO SCH ×2 (08:50→20:20)
--- NOTE | 2018-03-15 09:20 | PN ---
Subjective Date of Service: 03/15/18 Interval History: Patient seen this morning, her discharge yesterday was held due to nausea and post pandrial epigastric pain, she also did vomit x 1. She was send for US and result revealed Gallstones and labs consistent for elevated bilirubin. No acute pain today. tolerated some of her breakfast today. I did speak to surgery and recommended MRCP and will see patient in consultations Past Medical History: Unchanged from Admission Objective Active Medications: Acetaminophen (Tylenol Tab*) 650 mg PO Q4H PRN PRN Reason: FEVER/PAIN Last Admin: 03/11/18 21:41 Dose: 650 mg Docusate Sodium (Colace Cap*) 100 mg PO DAILY PRN PRN Reason: CONSTIPATION Enoxaparin Sodium (Lovenox(*)) 40 mg SUBCUT Q24H [facility] Last Admin: 03/14/18 22:10 Dose: 40 mg Naproxen (Naprosyn Tab*) 375 mg PO BID [facility] Last Admin: 03/15/18 08:50 Dose: 375 mg Omeprazole (Prilosec Cap*) 20 mg PO DAILY@0730 [facility] Last Admin: 03/15/18 07:34 Dose: Not Given Ondansetron HCl (Zofran Inj*) 4 mg IV Q6H PRN PRN Reason: NAUSEA Vital Signs - 8 hr 03/15/18 03/15/18 03/15/18 02:19 07:44 07:59 Temperature 97.3 F 97.4 F Pulse Rate 64 66 Respiratory 18 16 16 Rate Blood Pressure 110/76 120/70 (mmHg) O2 Sat by Pulse 96 94 Oximetry Oxygen Devices in Use Now: None Appearance: Awake, alert, no acute distress. Eyes: No Scleral Icterus, PERRLA Ears/Nose/Mouth/Throat: NL Teeth, Lips, Gums, Mucous Membranes Moist Neck: NL Appearance and Movements; NL JVP Respiratory: Symmetrical Chest Expansion and Respiratory Effort, Clear to Auscultation Cardiovascular: NL Sounds; No Murmurs; No JVD Abdominal: NL Sounds; No Tenderness; No Distention, - - mild RUQ pain, no rebound. Extremities: No Edema Skin: No Rash or Ulcers Neurological: Alert and Oriented x 3, NL Muscle Strength and Tone Result Diagrams: 03/15/18 07:12 03/15/18 07:12 Assess/Plan/Problems-Billing Assessment: 52 y/o female here for bilateral ankle fracture. Oblique non displaced left ankle fracture, and no obvious fracture of the right fibula as per orthopedic assessment of the xrays - Patient Problems (1) Abdominal pain Current Visit: Yes Status: Acute Code(s): R10.9 - UNSPECIFIED ABDOMINAL PAIN SNOMED Code(s): 18590933 Comment: - None today. It occurred only once post pandrial yesterday followed by vomiting and diaphoresis - I suspect could be related to her biliary colic, due to either biliary dyskinesia or chronic cholecystitis (2) Cholelithiasis Current Visit: Yes Status: Acute Comment: - None acute, I suspect chronic cholecystitis if any versus biliary diskinesia - Surgery was called in light of her rising bilirubin - MRCP ordered as per surgery. May need HIDA scan as well. will wait for the offical report/Surgery consultaitons. - Will hold discharge for today again (3) Ankle fracture Current Visit: Yes Status: Acute Code(s): S82.899A - OTH FRACTURE OF UNSP LOWER LEG, INIT FOR CLOS FX SNOMED Code(s): 75431800 Comment: - ortho cleared patient for weight bearing only to the right ankle. - PT/OT as tolerated. - Tramdol, tylenol and toradol - need ortho follow up within one 7-10 from admission date (4) Hyperthyroidism Current Visit: Yes Status: Acute Code(s): E05.90 - THYROTOXICOSIS, UNSP WITHOUT THYROTOXIC CRISIS OR STORM SNOMED Code(s): 35821557 Comment: - non listed on her home med list. Patient states she is having follow up with her tower hand once she returns home. - Declined treatment at this time until she sees her tower hand - TSH/FT4 from admission normal - Further work up as outpatient. (she sees endocrinology at [facility]) (5) Chest pain Current Visit: Yes Status: Resolved Code(s): R07.9 - CHEST PAIN, UNSPECIFIED SNOMED Code(s): 93546885 Comment: - Resolved - Vitals stable, she was assymptomatic driven by frustration and distress regarding her insurance and prior authorizations, I think anxiety driven, psychosomatic - reassurance no acute interventions. EKG, CXR Trop negative (6) Dizziness Current Visit: Yes Status: Resolved Code(s): R42 - DIZZINESS AND GIDDINESS SNOMED Code(s): 007338855 Comment: - resolved - Vitals stable, she was assymptomatic driven by frustration and distress regarding her insurance and prior authorizations, I think anxiety driven, psychosomatic - reassurance no acute interventions. EKG, CXR Trop negative (7) DVT prophylaxis Current Visit: Yes Status: Acute Code(s): ZCP5968 - SNOMED Code(s): 298392708 Comment: lovenox 40 mg sq daily Status and Disposition: for STR either here in [facility] or back home [facility] as patient prefer [facility] rehab if possible
--- NOTE | 2018-03-15 14:44 | CONS ---
CC: Onofre Ghosh MD CONSULTATION REPORT: DATE OF CONSULTATION: 03/15/18 HISTORY OF PRESENT ILLNESS: I was asked by the hospitalist service to consult for cholelithiasis and elevated liver chemistries. By history, the patient is a 52-year-old female who has had known gallstones and had had tentative pl ans to have her gallbladder out about 6 months ago and then for various reasons, never got around to having the surgery. She has been up here in [place], visiting her son at [place], when she took a fal l and fractured her ankle and was in the hospital for that, and was getting ready to be discharged to rehab, when she started to have nausea, queasiness, bloating, belching feeling and some vomiting and was evaluated and found to have elevated liver chemistries and cholelithiasis and therefore surgical consultation was requested. She has not had any surgery in that region previously. She does state they found a little cyst on the pancreas in the past and were just keeping an eye on that. She also has a history of hypothyroidism, but has not needed medications for that lately. PHYSICAL EXAMINATION: On examination today, she is a well-developed, well- nourished female, consist ent with the stated age. Skin is warm, well perfused. She does not appear acutely ill. Abdomen is s oft, mildly tender in the right subcostal region, trace Montalvo's sign, no guarding, no rebound tender ness. No peritonitis. No hernias. DIAGNOSTIC STUDIES/LAB DATA: Review of the laboratory studies shows elevated liver chemistries with a bilirubin that has gone from 1 up to 1.8, transaminases remained normal and electrolytes were elder l and hemoglobin is normal, white count normal. She has had an ultrasound of the gallbladder, which s hows cholelithiasis, but without acute changes. IMPRESSION: Hyperbilirubinemia in a woman with cholelithiasis, right upper quadrant symptoms, nausea , and vomiting. At this stage, this appears to be biliary colic, at least there is no evidence of acute cholecystitis on the ultrasound, nor does she have an elevated white count, nor does she have the kind of tenderne ss one would expect with acute cholecystitis. 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 So, I think it is reasonable to get an MRCP to evaluate for choledocholithiasis, perhaps we can visualize the pancreatic cyst that she was talking about in the past. In any case, if that scan is benign, th en she would require elective laparoscopic cholecystectomy that could be done during this admission o r at some elective time in the future. If there is the common duct stone, then she would probably ne ed ERCP. [id number]/[facility] #: [id number]
--- NOTE | 2018-03-15 18:45 | PN ---
Hospitalist Progress Note Date of Service: 03/15/18 Delay in entry: It should be noted that the patient discharge on Saturday03/14/18 was held by my order on that day to cancel discharge secondary to the new event of abdominal pain, nausea and vomiting secondary to biliary colicky associated with elevated bilirubin pending work up for obstructive choledocholelithiasis versus cholecystitis.
[2018-03-15] MEDS: Enoxaparin(*) 40 MG/0.4 ML SYR SUBCUT SCH (20:20)
[2018-03-16] MEDS ORDERED: NS 0.9% 500 ML* 500 ML IV ONE (03:00)
[2018-03-16] MEDS: Acetaminophen TAB* 325 MG PO PRN (03:26)
[2018-03-16 06:59] LABS: ABS Basophils 0 10^3/ul (0-0.2); ABS Eosinophils 0.1 10^3/ul (0-0.6); ABS Monocytes 0.4 10^3/ul (0-0.8); ABS Neutrophils 4.7 10^3/ul (1.5-7.7); ABS Nucleated RBC 0 10^3/ul; Eosinophil % 1.6 % (0-6); Hematocrit 40 % (35-47); Hemoglobin 13.7 g/dl (12.0-16.0); Lymphocyte % 27.4 % (25-47); Mean Corpuscular HGB Conc 34 g/dl (31-36); Mean Corpuscular Hemoglobin 31 pg (27-31); Mean Corpuscular Volume 90 fL (80-97); Mean Platelet Volume 8.9 um3 (7.4-10.4); Nucleated Red Blood Cells % 0.1; Platelet Count 217 10^3/ul (150-450); Red Blood Count 4.45 10^6/ul (4.00-5.40); Red Cell Distribution Width 13 % (10.5-15); White Blood Count 7.2 10^3/ul (3.5-10.8)
[2018-03-16 07:16] LABS: EGFR Non-African American 80.8 (>60)
[2018-03-16] MEDS: Omeprazole CAP* 20 MG PO SCH (09:03)
[2018-03-16] MEDS: Naproxen TAB* 375 MG PO SCH (09:03)
--- NOTE | 2018-03-16 10:19 | PN ---
Subjective Date of Service: 03/16/18 Interval History: Patient seen this morning. Doing well. Very upset she did not have her MRCP Yesterday! I did ask nursing staff to call MRI to make sure it is done today. Unfortunately! The MRCP was not performed yesterday due to technical failure, [employer] was called and for now it is tentatively being schedule for 11 am today. She still have nausea, bloated. currently NPO Past Medical History: Unchanged from Admission Objective Active Medications: Acetaminophen (Tylenol Tab*) 650 mg PO Q4H PRN PRN Reason: FEVER/PAIN Last Admin: 03/16/18 03:26 Dose: 650 mg Docusate Sodium (Colace Cap*) 100 mg PO DAILY PRN PRN Reason: CONSTIPATION Enoxaparin Sodium (Lovenox(*)) 40 mg SUBCUT Q24H [facility] Last Admin: 03/15/18 20:20 Dose: 40 mg Naproxen (Naprosyn Tab*) 375 mg PO BID [facility] Last Admin: 03/16/18 09:03 Dose: Not Given Omeprazole (Prilosec Cap*) 20 mg PO DAILY@0730 [facility] Last Admin: 03/16/18 09:03 Dose: Not Given Ondansetron HCl (Zofran Inj*) 4 mg IV Q6H PRN PRN Reason: NAUSEA Vital Signs - 8 hr 03/16/18 03/16/18 03/16/18 03:27 05:14 09:08 Temperature 97.3 F 98.2 F Pulse Rate 64 68 Respiratory 20 20 Rate Blood Pressure 94/56 124/76 117/74 (mmHg) O2 Sat by Pulse 96 93 Oximetry Oxygen Devices in Use Now: None Appearance: awake, alert. no acute distress. Upset and anxious Eyes: No Scleral Icterus, PERRLA Ears/Nose/Mouth/Throat: NL Teeth, Lips, Gums, Clear Oropharnyx, Mucous Membranes Moist Neck: NL Appearance and Movements; NL JVP, Trachea Midline Respiratory: Symmetrical Chest Expansion and Respiratory Effort, Clear to Auscultation Cardiovascular: NL Sounds; No Murmurs; No JVD, RRR Abdominal: NL Sounds; No Tenderness; No Distention Extremities: No Edema Skin: No Rash or Ulcers Neurological: Alert and Oriented x 3 Result Diagrams: 03/16/18 06:39 10/28/18 06:39 Assess/Plan/Problems-Billing Assessment: 52 y/o female here for bilateral ankle fracture. Oblique non displaced left ankle fracture, and no obvious fracture of the right fibula as per orthopedic assessment of the xrays - Patient Problems (1) Abdominal pain Current Visit: Yes Status: Acute Code(s): R10.9 - UNSPECIFIED ABDOMINAL PAIN SNOMED Code(s): 78595332 Comment: - None today. It occurred only once post pandrial once followed by vomiting and diaphoresis. I did suspect could be related to her biliary colic, due to either biliary dyskinesia or chronic cholecystitis - Bilirubin was elevated almost 2 fold from baseline from 1.0 to 1.8! and with the sympotmatology and history of gallstone, US obtained and revealed thickened gallbladder wall and gallstone but no melecio evidence of acute cholecystitis. Nonetheless it could have been due to sludge, and transiet CBD stone. Surgery called and I agree with MRCP - Pending MRCP she may need surgery versus discharge and ouptatient follow up - Currently discharge on hold pending MRCP (2) Cholelithiasis Current Visit: Yes Status: Acute Comment: - None acute, I suspect chronic cholecystitis if any versus biliary diskinesia - Surgery was called in light of her rising bilirubin - MRCP ordered as per surgery. May need HIDA scan as well. - Dsicharge on hold pending MRCP. - Pending MRCP she may need surgery versus discharge and ouptatient follow up (3) Ankle fracture Current Visit: Yes Status: Acute Code(s): S82.899A - OTH FRACTURE OF UNSP LOWER LEG, INIT FOR CLOS FX SNOMED Code(s): 28423007 Comment: - Ortho cleared patient for weight bearing only to the right ankle. - PT/OT as tolerated. - s/p Tramdol, tylenol and s/p toradol now no naproxen - I did call ortho to re-evalute. as it has been almost a week since admission. Will need to reassess if current left ankle immobilzer need to be changed to hard cast versus keeping her the same. ortho called spoke to Dr. Coe. (4) Hyperthyroidism Current Visit: Yes Status: Acute Code(s): E05.90 - THYROTOXICOSIS, UNSP WITHOUT THYROTOXIC CRISIS OR STORM SNOMED Code(s): 29367262 Comment: - non listed on her home med list. Patient states she is having follow up with her yield analyst once she returns home. - Declined treatment at this time until she sees her yield analyst - TSH/FT4 from admission normal - Further work up as outpatient. (she sees endocrinology at [facility]) (5) Chest pain Current Visit: Yes Status: Resolved Code(s): R07.9 - CHEST PAIN, UNSPECIFIED SNOMED Code(s): 48384122 Comment: - Resolved - Vitals stable, she was assymptomatic driven by frustration and distress regarding her insurance and prior authorizations, I think anxiety driven, psychosomatic - reassurance no acute interventions. EKG, CXR Trop negative (6) Dizziness Current Visit: Yes Status: Resolved Code(s): R42 - DIZZINESS AND GIDDINESS SNOMED Code(s): 012030168 Comment: - resolved - Vitals stable, she was assymptomatic driven by frustration and distress regarding her insurance and prior authorizations, I think anxiety driven, psychosomatic - reassurance no acute interventions. EKG, CXR Trop negative (7) DVT prophylaxis Current Visit: Yes Status: Acute Code(s): WOP8513 - SNOMED Code(s): 243860037 Comment: lovenox 40 mg sq daily Status and Disposition: for STR either here in [facility] or back home [facility] as patient prefer [facility] rehab if possible
--- NOTE | 2018-03-16 10:55 | PN ---
Progress Note - Progress Note Date of Service: 03/16/18 Note: Cholelithiasis Bili down slightly today Other LFT's normal No pain I doubt there will be a CBD stone If this is confirmed on MRCP, she could be discharged and F/U as outpt for elective lap marilee in the coming week.
--- NOTE | 2018-03-16 11:36 | PN ---
Progress Note - Progress Note Date of Service: 03/16/18 SOAP: Subjective: 52 yo female, twisted both ankles this past Saturday when going down stairs. Unable to WB and came to the ED. X-rays found a left ankle fracture and the ER attendant believed she has a left ankle fracture due to the exam. She lives in [place] and I thought she would be able to mobilize and get home for difinitive treatment. She is still in-house, but does report the ankles are better than they were. She had right RTC surgery and can not use crutches, as I had said she could be WBAT on the right LE. She reports that she can put weight on the right heel and that works well so she can transfer to the wheelchair and get to the bathroom. She has question about healing and how htis will progress. Objective: Mature female, NAD, laying in the hospital bed. R LE: sadia and air cats were taken down. Very minimal swelling about the ankle joint laterally. Resolving echymosis along the distal fibula. Completely non tender there as I palpate. She is specifically tender over the ATFL and calcaneofibular ligament. Non tender over the PTFL. Can plantar flex to 35 degrees and dorsiflex to 10 to 15 degrees comfortably in both directions. L LE: sugar tong splint in good condition and was allowed to remain on. Swollen over dorsum of foot where sadia ends. Can easily wiggle her toes and good sensation over the FDWS. Sugar tong covers the fracture and nontender as I palpate about the non reinforced areas. Assessment: Left ankle distal fibula fracture, Right ankle sprain Plan: I d/w her that she can be fully WB on the right in the air cast, and while it will hurt, she is not doing any damage. The splint is in excellent condition, but considering she will be going to sub-acute rehab and then hopefully home, will place her into a cast today. She can touch down when in the cast on the left, but should not truly WB in the cast on the left.
--- NOTE | 2018-03-16 12:45 | RAD ---
INDICATION: Gallstones, elevated bilirubin. COMPARISON: Comparison is made with a prior right upper quadrant ultrasound from March 14, 2018. TECHNIQUE: Axial and coronal heavily T2-weighted images of the abdomen were obtained. Images were reconstructed in the maximum intensity projection format. FINDINGS: There are trace bilateral pleural effusions. The liver is mildly enlarged without focal abnormality. The spleen appears to be within normal limits. There are multiple gallstones present. No intra or extra hepatic ductal distention is seen. The common bile duct measures up to 5 mm in diameter. No intraluminal filling defect or bile duct calculus is seen. No pancreatic ductal distention is present. The adrenal glands and kidneys are normal in size. No mass is seen. There is no evidence for hydronephrosis. IMPRESSION: 1. CHOLELITHIASIS. 2. MILD HEPATOMEGALY. 3. TRACE BILATERAL PLEURAL EFFUSIONS.
[2018-03-16] MEDS ORDERED: Clindamycin 900 MG/D5W BAG(*) 900 MG/50 ML BAG IVPB ONE (15:28)
--- NOTE | 2018-03-16 15:31 | PN ---
Progress Note - Progress Note Date of Service: 03/16/18 Note: There is time in operating room tomorrow to have laparoscopic cholecystectomy with Dr sanchez late morning. D/W pt, she would like to have this done. She may be able to be discharged to rehab afterwards.
[2018-03-16] MEDS: Triamcinolone 0.5% OINT * 15 GM TUBE TOPICAL SCH (20:52)
[2018-03-16] MEDS: Enoxaparin(*) 40 MG/0.4 ML SYR SUBCUT SCH (20:52)
[2018-03-17] MEDS: Omeprazole CAP* 20 MG PO SCH (06:12)
[2018-03-17] MEDS ORDERED: Clindamycin 900 MG/D5W BAG(*) 900 MG/50 ML BAG IVPB ONE (09:00)
[2018-03-17] MEDS: Triamcinolone 0.5% OINT * 15 GM TUBE TOPICAL SCH ×2 (09:18→22:20)
[2018-03-17] MEDS ORDERED: Morphine VIAL* 10 MG/ML 1 ML VIAL ONE ×2 (09:43→11:48)
[2018-03-17] MEDS ORDERED: Buffered Lidocaine 0.9% SYRIN* 5 ML/SYR SYRINGE INTRADERM ONE (10:22)
[2018-03-17] MEDS ORDERED: Famotidine IV* 10 MG/ML 2 ML (20 mg) IV ONE (10:22)
[2018-03-17] MEDS ORDERED: Dexamethasone IV* 4 MG/ML 1 ML (4 MG) IV SLOW PU ONE (10:22)
[2018-03-17] MEDS ORDERED: Midazolam* 1 MG/ML 2 ML VIAL (2 MG) ONE (10:24)
[2018-03-17] MEDS ORDERED: Rocuronium* 10 MG/ML VIAL ONE (10:24)
[2018-03-17] MEDS ORDERED: fentaNYL* 50 MCG/ML 5 ML VIAL (250 MCG VIAL) ONE (10:24)
[2018-03-17] MEDS ORDERED: Lidocaine 2% PF * 5 ML VIAL ONE (10:26)
[2018-03-17] MEDS ORDERED: Propofol* 10 MG/ML 20 ML BTL IV PUSH ONE (10:26)
[2018-03-17] MEDS ORDERED: Bupivacaine 0.25% W/EPI* 10 ML SDV ONE (11:55)
--- NOTE | 2018-03-17 14:46 | RAD ---
Indication: Elevated bilirubin. Gallstones. Comparison: March 16, 2018 MRCP and March 14, 2018 ultrasound. Technique: 6.400 mCi of Tc-99m Choletec was injected IV. Serial anterior images of the abdomen were obtained immediately following radiopharmaceutical administration to 60 minutes. Report: There is normal hepatic uptake and excretion of the radiopharmaceutical with the gallbladder being visualized at approximately 20 minutes following injection. Bowel activity visualized at approximately 60 minutes. Additional anterior scintiphoto obtained at 65 minutes. IMPRESSION: #. Patent cystic and common bile ducts documented.
--- NOTE | 2018-03-17 17:20 | PN ---
Subjective Date of Service: 03/17/18 Interval History: Patient seen this afternoon. She was scheduled for lap cholecystectomy today as surgery Dr. Landaverde did not see strong evidence to support the surgery acutely and recommended HIDA before committing for acute surgery. Patient was cancelled patient was made aware. HIDA scan ordered and result did come back negative. I did relay the information to the patient that she will most likely has to follow up for outpatient surgery. She did request CT abdomen and pelvis for which I did defer to have further work up with her PCP once she complete her rehab as there is no indications at this time for acutely obtaining the CT and this is electively can be requested as outpatient. Patient denying any chest pain, no nausea no vomit. she is hungry asking for food Past Medical History: Unchanged from Admission Objective Active Medications: Acetaminophen (Tylenol Tab*) 650 mg PO Q4H PRN PRN Reason: FEVER/PAIN Last Admin: 03/16/18 03:26 Dose: 650 mg Docusate Sodium (Colace Cap*) 100 mg PO DAILY PRN PRN Reason: CONSTIPATION Enoxaparin Sodium (Lovenox(*)) 40 mg SUBCUT Q24H REPLACED BY [facility] Last Admin: 03/16/18 20:52 Dose: 40 mg Lactated Ringer's (Lactated Ringers 1000 Ml Bag*) 1,000 mls @ 125 mls/hr IV PER RATE REPLACED BY [facility] Naproxen (Naprosyn Tab*) 375 mg PO BID PRN PRN Reason: PAIN Omeprazole (Prilosec Cap*) 20 mg PO DAILY@0730 REPLACED BY [facility] Last Admin: 03/17/18 06:12 Dose: Not Given Ondansetron HCl (Zofran Inj*) 4 mg IV Q6H PRN PRN Reason: NAUSEA Triamcinolone Acetonide (Triamcinolone 0.5% Oint *) 1 applic TOPICAL BID REPLACED BY [facility] Last Admin: 03/17/18 09:18 Dose: 1 applic Vital Signs - 8 hr 03/17/18 03/17/18 12:38 15:28 Temperature 97.2 F 97.4 F Pulse Rate 77 75 Respiratory 18 16 Rate Blood Pressure 120/80 126/80 (mmHg) O2 Sat by Pulse 96 99 Oximetry Oxygen Devices in Use Now: None Appearance: No acute distress. in chair. doing well Eyes: No Scleral Icterus, PERRLA Ears/Nose/Mouth/Throat: NL Teeth, Lips, Gums, Mucous Membranes Moist Neck: NL Appearance and Movements; NL JVP, Trachea Midline Extremities: - - right lower extremity hard cast Neurological: Alert and Oriented x 3 Result Diagrams: 03/16/18 06:39 03/16/18 06:39 Microbiology and Other Data: Microbiology 03/15/18 12:00 Urine Culture - Final Urine Assess/Plan/Problems-Billing Assessment: 52 y/o female here for bilateral ankle fracture. Oblique non displaced left ankle fracture, and no obvious fracture of the right fibula as per orthopedic assessment of the xrays - Patient Problems (1) Abdominal pain Current Visit: Yes Status: Acute Code(s): R10.9 - UNSPECIFIED ABDOMINAL PAIN SNOMED Code(s): 66082214 Comment: - None today. It occurred only once post pandrial once 03/14/18 followed by vomiting and diaphoresis. I did suspect could be related to her biliary colic, due to either biliary dyskinesia or chronic cholecystitis - Bilirubin was elevated almost 2 fold from baseline from 1.0 to 1.8! and with the sympotmatology and history of gallstone, US obtained and revealed thickened gallbladder wall!!! and gallstone but no melecio evidence of acute cholecystitis. Nonetheless it could have been due to sludge, and transiet CBD stone. Surgery called and I agree with MRCP - MRCP normal - Surgery was cancelled pending HIDA scan. Hida scan done today and was negative - Most likely will be discharged in am pending evaluation by surgery Dr. Landaverde. (2) Cholelithiasis Current Visit: Yes Status: Acute Comment: - Bilirubin was elevated almost 2 fold from baseline from 1.0 to 1.8! and with the sympotmatology and history of gallstone, US obtained and revealed thickened gallbladder wall!!! and gallstone but no melecio evidence of acute cholecystitis. Nonetheless it could have been due to sludge, and transiet CBD stone. Surgery called and I agree with MRCP - MRCP normal - Surgery was cancelled pending HIDA scan. Hida scan done today and was negative - Most likely will be discharged in am pending evaluation by surgery Dr. Landaverde. (3) Ankle fracture Current Visit: Yes Status: Acute Code(s): S82.899A - OTH FRACTURE OF UNSP LOWER LEG, INIT FOR CLOS FX SNOMED Code(s): 08582492 Comment: - Ortho cleared patient for weight bearing only to the right ankle. - PT/OT as tolerated. - s/p Tramdol, tylenol and s/p toradol now no naproxen - I did call ortho to hard cast to left ankle. she have weight bearing to right. for STR and outpatient follow up with ortho (4) Hyperthyroidism Current Visit: Yes Status: Acute Code(s): E05.90 - THYROTOXICOSIS, UNSP WITHOUT THYROTOXIC CRISIS OR STORM SNOMED Code(s): 84173110 Comment: - non listed on her home med list. Patient states she is having follow up with her graphic manager once she returns home. - Declined treatment at this time until she sees her graphic manager - TSH/FT4 from admission normal - Further work up as outpatient. (she sees endocrinology at [facility]) (5) Chest pain Current Visit: Yes Status: Resolved Code(s): R07.9 - CHEST PAIN, UNSPECIFIED SNOMED Code(s): 82548986 Comment: - Resolved - Vitals stable, she was assymptomatic driven by frustration and distress regarding her insurance and prior authorizations, I think anxiety driven, psychosomatic - reassurance no acute interventions. EKG, CXR Trop negative (6) Dizziness Current Visit: Yes Status: Resolved Code(s): R42 - DIZZINESS AND GIDDINESS SNOMED Code(s): 971900419 Comment: - resolved - Vitals stable, she was assymptomatic driven by frustration and distress regarding her insurance and prior authorizations, I think anxiety driven, psychosomatic - reassurance no acute interventions. EKG, CXR Trop negative (7) DVT prophylaxis Current Visit: Yes Status: Acute Code(s): TWY7049 - SNOMED Code(s): 211710207 Comment: lovenox 40 mg sq daily Status and Disposition: for STR either here in [facility] or back home [facility] as patient prefer [facility] rehab if possible
[2018-03-17] MEDS: Enoxaparin(*) 40 MG/0.4 ML SYR SUBCUT SCH (22:20)
[2018-03-17] MEDS: Naproxen TAB* 375 MG PO PRN (22:20)
[2018-03-18] MEDS: Triamcinolone 0.5% OINT * 15 GM TUBE TOPICAL SCH (08:30)
[2018-03-18] MEDS: Naproxen TAB* 375 MG PO PRN (08:30)
[2018-03-18] MEDS: Omeprazole CAP* 20 MG PO SCH (08:32)
--- NOTE | 2018-03-18 12:16 | DS ---
DATE OF ADMISSION: 03/10/2018. DATE OF DISCHARGE: 03/18/2018. ADMITTING PROVIDER: Dr. Rick Main. PRIMARY CARE PHYSICIAN: Dr. Leonardo of [place], [place]. ATTENDING PHYSICIAN ON THE DAY OF DISCHARGE: Dr. Shashank Ozuna. CHIEF COMPLAINT: Bilateral ankle pain, status post fall. PRINCIPAL DIAGNOSIS: Nondisplaced fracture of the left distal fibula; cholelithiasis with intermittent nausea. HISTORY OF PRESENT ILLNESS AND HOSPITAL COURSE: Desirae Moore is a 52-year- old female with a past medical history of hyperthyroidism, off Methimazole for the last month after normalization of thyroid studies who tripped going down a flight of stairs, breaking her fall with her hands. She was found to have a nondisplaced distal left fibular fracture which was nonoperatively managed and Dr. Coe has placed a hard cast on March 16. She underwent thyroid studies. Her TSH was 0.98 and free T4 was 0.68. Her course was complicated by an episode of nausea, diaphoresis, black spots in her vision, and some abdominal discomfort. There was concern for cholelithiasis. She underwent an abdominal ultrasound on March 14 which demonstrated cholelithiasis without other sonographic findings of cholecystitis. She had a Surgical consult with Dr. Ghosh and Dr. Landaverde. She had an MRCP on March 15 which demonstrated again cholelithiasis, mild hepatomegaly, and trace bilateral pleural effusions. She had a HIDA scan on March 17 which showed patent cystic and common bile ducts. She initially had been referred for possible cholecystectomy and of note her bilirubin had increased from 1.0 on admission to 2.0 on the day of discharge with most of that being indirect at 1.[address] Landaverde's final recommendation was to follow- up as an outpatient and there may be concern that this may represent Gilbert's disease. Her abdominal pain has resolved. She does still have intermittent nausea. She also had an episode of left lateral chest wall pain. She had a negative troponin on March 13 and no changes in the EKG. She was visiting her son who is a student at [employer] and has decided to do further rehabilitation at [facility] given the fact that she is unable to use crutches and is just toe touch on the left ankle. She is unable to use crutches , she says, because of her history of recent right rotator cuff surgery in November of 2017. She should follow-up with Dr. Coe within four to seven days and her primary care provider when returning to [place]. Please note that this note serves as both discharge summary and admission history and physical to [facility]. DISCHARGE MEDICATIONS: 1. Triamcinolone 0.5% ointment b.i.d. 2. Zofran 4 mg p.o. q.6 hours prn. 3. Omeprazole 20 mg p.o. daily. 4. Naproxen 375 mg p.o. b.i.d. prn. 5. Docusate 100 mg p.o. daily prn. 6. Tylenol 650 mg p.o. q.4 hours prn. FOLLOW-UP: She should follow-up with a general surgeon or PCP about rechecking her liver function test and consider cholecystectomy if continued episodes of nausea or abdominal pain. DISCHARGE DIET: Low fat. TIME SPENT ON THIS DISCHARGE: 35 minutes. [id number]/CPS #: [id number]
[2018-03-18 12:54] VITALS: BP 111/75
--- NOTE | 2018-03-18 13:35 | PN ---
Progress Note - Progress Note Date of Service: 03/18/18 SOAP: Subjective: No pain, N/V or distension Tolerating po Objective: Temp Pulse Resp BP Pulse Ox 97.4 F 81 18 111/75 97 03/18/18 12:13 03/18/18 12:13 03/18/18 12:13 03/18/18 12:13 03/18/18 12:13 PEX: Comfortable Lungs are clear Abd is soft and non-distended. Bowel sounds are present and normal. No tenderness, no organomegaly, no masses. HIDA scan noted--no cholecystitis Labs noted-mild elevation of bilirubin, indirect component Assessment: Known gallstones-no abd pain, normal HIDA. Etiology of elevation of bilirubin not clear. Transaminases are normal Orthopedic lower extremity injuries-awaiting rehab Plan: Hold on cholecystectomy for now-recommend continuing orthopedic rehab plan and she can proceed with elective cholecystectomy if needed on her return to home in [facility]. No urgent indication for gallbladder surgery at present, I do not believe bilirubin elevation secondary to biliary source. All discussed with patient and she understands.
== END 2018-03-18 13:20 | DRG 342 ==
LOC: ED 17:22 → MED 20:37 → OBSVTOIN 03-14 17:00 → MED 03-15 01:24
PROVIDERS: ADMIT Student in an Organized Health Care Education/Training Program; ATTEND Internal Medicine
DX: S82.832A Other fracture of upper and lower end of left fibula, initial encounter for closed fracture (principal); W10.9XXA Fall (on) (from) unspecified stairs and steps, initial encounter; E05.90 Thyrotoxicosis, unspecified without thyrotoxic crisis or storm; Z96.641 Presence of right artificial hip joint; S93.401A Sprain of unspecified ligament of right ankle, initial encounter; R07.9 Chest pain, unspecified; K80.20 Calculus of gallbladder without cholecystitis without obstruction; E80.6 Other disorders of bilirubin metabolism; Y92.214 College as the place of occurrence of the external cause; Z88.0 Allergy status to penicillin; Z91.040 Latex allergy status; Z82.49 Family history of ischemic heart disease and other diseases of the circulatory system; Z83.3 Family history of diabetes mellitus
CPT/HCPCS: 36415; 71045; 74181; 76376; 76705; 78226; 80048; 80053; 80061; 80076; 82150; 83690; 83735; 84100; 84439; 84443; 84484; 85025; 85610; 87086; 93005; 99283; A9270-GY; A9537; G0378; J1650; J1885; J2250; J2270; J2704; J3010